=== PATIENT | female | born 1975 | race African-American/Black ===

== ENCOUNTER 2017-04-05 17:09 | Inpatient (IN) | payer BC ==
[~2017-04-05] VITALS: Ht 160 cm; Wt 81.6 kg
[2017-04-05] MEDS ORDERED: Morphine Sulfate 4mg/ml Inj IVP ONE ×2 (17:15→21:45)
[2017-04-05] MEDS ORDERED: Ketorolac 30mg Inj IV ONE (17:15)
[2017-04-05 17:40] VITALS: BP 171/109
[2017-04-05 18:01] LABS: BASOPHILS % (AUTO) 1.1 % (0.0-2.0); EOSINOPHILS % (AUTO) 3.2 % (0.0-3.0); LYMPHOCYTES % (AUTO) 21.9 % (20.0-45.0); MEAN CORPUSCULAR HEMOGLOBIN 29.8 PG (27.0-31.0); MEAN CORPUSCULAR HGB CONC 32.1 G/DL (32.0-36.0); MEAN CORPUSCULAR VOLUME 93 FL (80-99); MEAN PLATELET VOLUME 11.5 FL (6.5-10.1); MONOCYTES % (AUTO) 9.9 % (1.0-10.0); NEUTROPHILS % (AUTO) 63.9 % (45.0-75.0); PLATELET COUNT 219 K/UL (150-450); RED BLOOD COUNT 4.52 M/UL (4.20-5.40); RED CELL DISTRIBUTION WIDTH 11.6 % (11.6-14.8); WHITE BLOOD COUNT 7.5 K/UL (4.8-10.8)
[2017-04-05 18:07] LABS: INR 1.1 (0.9-1.1); PROTHROMBIN TIME 11.4 SEC (9.30-11.50)
[2017-04-05 18:08] LABS: ANION GAP 11 mmol/L (5-15); CALCIUM 9.1 MG/DL (8.5-10.1); CARBON DIOXIDE 26 MMOL/L (21-32); CHLORIDE 101 MMOL/L (98-107); CREATININE 0.9 MG/DL (0.55-1.30); GLOMERULAR FILTRATION RATE > 60 mL/min (>60); POTASSIUM 3.5 MMOL/L (3.5-5.1); SODIUM 138 MMOL/L (136-145)
[2017-04-05 18:12] LABS: ALANINE AMINOTRANSFERASE 40 U/L (12-78); ALBUMIN/GLOBULIN RATIO 0.8 (1.0-2.7); ASPARTATE AMINO TRANSFERASE 35 U/L (15-37); LIPASE 101 U/L (73-393); TOTAL PROTEIN 9.1 G/DL (6.4-8.2)
[2017-04-05 18:16] LABS: APPEARANCE,URINE SLIGHTLY CLOUDY; KETONES,URINE NEGATIVE (NEGATIVE); LEUKOCYTE ESTERASE ,URINE 1+ (NEGATIVE); NITRITE,URINE NEGATIVE (NEGATIVE); PH,URINE 6 (4.5-8.0); PROTEIN,URINE 1+ (NEGATIVE); UROBILINOGEN,URINE NORMAL MG/DL (0.0-1.0)
[2017-04-05 18:25] LABS: BACTERIA,URINE MANY /HPF; SQUAMOUS EPITHELIAL CELL,UR MODERATE /LPF (NONE/OCC)
[2017-04-05 19:00] VITALS: BP 157/93
[2017-04-05] MEDS ORDERED: cefTRIAXone 1 GM in NS 55 ML IVPB ONE (19:00)
[2017-04-05] MEDS ORDERED: LISINOPRIL10 MG ORAL (19:03)
[2017-04-05] MEDS ORDERED: SPIRONOLACTONE1 EACH ORAL (19:03)
[2017-04-05] MEDS ORDERED: SERTRALINE HCL25 MG ORAL (19:03)
--- NOTE | 2017-04-05 21:36 | Emergency Room Report ---
History of Present Illness General Chief Complaint: Abdominal Pain Source: Patient Present Illness HPI The patient presents several days with severe abdominal pain. She was sent by her doctor. She has a history of diverticulitis and believes this is what it is. Pain now 9/10 LLQ more than rest. Pain is constant, not radiating. No meds taken. No dysuria. Hysterectomy. No diarrhea, melena. Nausea and lack of appetite. Feels feverish. No URI sy, CP, cough, rashes. Stressed with work and kids. Allergies: Coded Allergies: No Known Allergies (Unverified , 04/05/17) Patient History Past Medical History: see triage record, diverticulitis Past Surgical History: hysterectomy Social History: Denies: smoking Social History Narrative single mom Now: No Reviewed Nursing Documentation: PMH: Agreed, PSxH: Agreed Nursing Documentation-PMH Hx Hypertension: Yes Review of Systems All Other Systems: negative except mentioned in HPI Physical Exam Vital Signs Date Time Temp Pulse Resp B/P (MAP) Pulse Ox O2 Delivery O2 Flow Rate FiO2 04/05/17 17:08 98.2 88 16 182/120 98 Room Air Sp02 EP Interpretation: reviewed, normal General Appearance: well appearing, no apparent distress, GCS 15 Head: normocephalic Eyes: bilateral eye normal inspection, bilateral eye PERRL ENT: moist mucus membranes Neck: supple Respiratory: lungs clear, normal breath sounds Cardiovascular #1: regular rate, rhythm Cardiovascular #2: 2+ radial (R) Gastrointestinal: no rebound, guarding - LLQ, tenderness Genitourinary: no CVA tenderness Musculoskeletal: back normal, gait/station normal, normal range of motion Neurologic: alert, oriented x3, grossly normal Psychiatric: mood/affect normal Skin: normal inspection, warm/dry Medical Decision Making Diagnostic Impression: Primary Impression: Acute diverticulitis Additional Impression: UTI (urinary tract infection) Qualified Codes: N30.00 - Acute cystitis without hematuria ER Course Patient with LLQ pain. DDx: diverticulitis, stone, colitis, strain, UTI amongst others. Although short course, exam significant and CT and labs indicated. IV hydration and analgesia also indicated. Labs with normal WBC, pyuria. Antibiotics begun. Doubt pain due to UTI. Patient with 7/[address] with diverticulitis. Not surgical abdomen. Antibiotics broadened. Admit med. Contact Dr. Germain for admission. Laboratory Tests Test 04/05/17 17:35 04/05/17 17:55 White Blood Count 7.5 K/UL (4.8-10.8) Red Blood Count 4.52 M/UL (4.20-5.40) Hemoglobin 13.5 G/DL (12.0-16.0) Hematocrit 41.9 % (37.0-47.0) Mean Corpuscular Volume 93 FL (80-99) Mean Corpuscular Hemoglobin 29.8 PG (27.0-31.0) Mean Corpuscular Hemoglobin Concent 32.1 G/DL (32.0-36.0) Red Cell Distribution Width 11.6 % (11.6-14.8) Platelet Count 219 K/UL (150-450) Mean Platelet Volume 11.5 FL (6.5-10.1) H Neutrophils (%) (Auto) 63.9 % (45.0-75.0) Lymphocytes (%) (Auto) 21.9 % (20.0-45.0) Monocytes (%) (Auto) 9.9 % (1.0-10.0) Eosinophils (%) (Auto) 3.2 % (0.0-3.0) H Basophils (%) (Auto) 1.1 % (0.0-2.0) Prothrombin Time 11.4 SEC (9.30-11.50) Prothrombin Time INR 1.1 (0.9-1.1) PTT 29 SEC (23-33) Sodium Level 138 MMOL/L (136-145) Potassium Level 3.5 MMOL/L (3.5-5.1) Chloride Level 101 MMOL/L (98-107) Carbon Dioxide Level 26 MMOL/L (21-32) Anion Gap 11 mmol/L (5-15) Blood Urea Nitrogen 15 mg/dL (7-18) Creatinine 0.9 MG/DL (0.55-1.30) Estimate Glomerular Filtration Rate > 60 mL/min (>60) Glucose Level 89 MG/DL (74-106) Calcium Level 9.1 MG/DL (8.5-10.1) Total Bilirubin 0.2 MG/DL (0.2-1.0) Aspartate Amino Transferase (AST) 35 U/L (15-37) Alanine Aminotransferase (ALT) 40 U/L (12-78) Alkaline Phosphatase 82 U/L (46-116) Total Protein 9.1 G/DL (6.4-8.2) H Albumin 3.9 G/DL (3.4-5.0) Globulin 5.2 g/dL Albumin/Globulin Ratio 0.8 (1.0-2.7) L Lipase 101 U/L (73-393) Urine Color Yellow Urine Appearance Slightly cloudy Urine pH 6 (4.5-8.0) Urine Specific [place] 1.020 (1.005-1.035) Urine Protein 1+ (NEGATIVE) H Urine Glucose (UA) Negative (NEGATIVE) Urine Ketones Negative (NEGATIVE) Urine Occult Blood 4+ (NEGATIVE) H Urine Nitrite Negative (NEGATIVE) Urine Bilirubin Negative (NEGATIVE) Urine Urobilinogen Normal MG/DL (0.0-1.0) Urine Leukocyte Esterase 1+ (NEGATIVE) H Urine RBC 10-15 /HPF (0 - 2) H Urine WBC 5-10 /HPF (0 - 2) H Urine Squamous Epithelial Cells Moderate /LPF (NONE/OCC) H Urine Bacteria Many /HPF (NONE) H Urine HCG, Qualitative Negative CT/MRI/US Diagnostic Results CT/MRI/US Diagnostic Results : Imaging Test Ordered: ct abd/pelvis Impression acute diverticulitis without abscess or perf Last Vital Signs Date Time Temp Pulse Resp B/P (MAP) Pulse Ox O2 Delivery O2 Flow Rate FiO2 04/05/17 23:41 97.6 76 19 157/93 100 Room Air Status: improved Disposition: ADMITTED INPATIENT Condition: Serious Scripts Ondansetron Odt* (ZOFRAN ODT*) 4 Mg Tab.rapdis 4 MG ORAL Q6H Y for 10 Days, #30 TAB 2 Refills Prov: Marcellus Dugan M.D. 04/06/17 Metronidazole* (FLAGYL*) 500 Mg Tablet 500 MG ORAL THREE TIMES A DAY for 9 Days, #27 TAB Prov: Marcellus Dugan M.D. 04/06/17 Referrals: NOT CHOSEN SARAH/,REFERRING (PCP) Daryl Knight M.D. Apr 05, 2017 21:36
[2017-04-05] MEDS ORDERED: Zolpidem 5mg tab ORAL PRN (22:45)
[2017-04-05] MEDS ORDERED: Morphine Sulfate 2mg/ml Inj IVP PRN (22:45)
[2017-04-05] MEDS ORDERED: Morphine Sulfate 4mg/ml Inj IVP PRN (22:45)
[2017-04-06] MEDS: D5 1/2NS w/KCl 20mEq 1,000 ML IV SCH ×3 (02:22→17:58)
[2017-04-06 04:00] VITALS: BP 142/72
[2017-04-06] MEDS: metroNIDAZOLE 500mg tab ORAL SCH ×3 (06:14→21:31)
[2017-04-06 07:05] LABS: ALANINE AMINOTRANSFERASE 38 U/L (12-78); ALBUMIN/GLOBULIN RATIO 0.8 (1.0-2.7); ANION GAP 8 mmol/L (5-15); ASPARTATE AMINO TRANSFERASE 26 U/L (15-37); BASOPHILS % (AUTO) 0.6 % (0.0-2.0); CALCIUM 8.4 MG/DL (8.5-10.1); CARBON DIOXIDE 26 MMOL/L (21-32); CHLORIDE 104 MMOL/L (98-107); CREATININE 0.8 MG/DL (0.55-1.30); EOSINOPHILS % (AUTO) 2.2 % (0.0-3.0); GLOMERULAR FILTRATION RATE > 60 mL/min (>60); LYMPHOCYTES % (AUTO) 23.3 % (20.0-45.0); MAGNESIUM 1.7 MG/DL (1.8-2.4); MEAN CORPUSCULAR HEMOGLOBIN 31.3 PG (27.0-31.0); MEAN CORPUSCULAR HGB CONC 33.5 G/DL (32.0-36.0); MEAN CORPUSCULAR VOLUME 93 FL (80-99); MEAN PLATELET VOLUME 13.1 FL (6.5-10.1); MONOCYTES % (AUTO) 11.6 % (1.0-10.0); NEUTROPHILS % (AUTO) 62.4 % (45.0-75.0); PLATELET COUNT 180 K/UL (150-450); POTASSIUM 3.8 MMOL/L (3.5-5.1); SODIUM 138 MMOL/L (136-145); TOTAL PROTEIN 7.7 G/DL (6.4-8.2); WHITE BLOOD COUNT 7.4 K/UL (4.8-10.8)
[2017-04-06 08:00] VITALS: BP 140/115
[2017-04-06] MEDS: Sertraline 50mg tab ORAL SCH (09:10)
[2017-04-06] MEDS: Lisinopril 20mg tab ORAL SCH (09:10)
[2017-04-06] MEDS: Heparin 5000 units/ml inj SUBQ SCH ×2 (09:13→21:35)
--- NOTE | 2017-04-06 09:26 | Diagnostic Imaging Report ---
Clinical Indication: Abdominal pain Technique: Patient given oral contrast. IV administration nonionic contrast. Venous phase spiral acquisition obtained through the abdomen and pelvis. Multiplanar reconstructions were generated. Total dose length product 868 mGycm. CTDIvol(s) 17 mGy. Dose reduction achieved using automated exposure control Comparison: None Findings: There is colonic diverticulosis. There is equivocal minimal stranding of the pericolonic fat at the level of the proximal sigmoid. The appendix is normal. No small bowel distention or small bowel wall thickening. There is questionably trace free pelvic cul-de-sac fluid. No free intraperitoneal air. Stomach is nondistended, otherwise unremarkable. Distal esophagus and duodenum are unremarkable. The liver, gallbladder, bile ducts, pancreas, spleen, adrenals, kidneys are all unremarkable. No retroperitoneal or mesenteric mass or adenopathy. There is a 5.3 cm cyst in the left ovary. There is suggestion of prior supracervical hysterectomy. The included lung bases demonstrate some posterior dependent atelectatic changes. Impression: Colonic diverticulosis. Equivocal slight stranding of the pericolonic fat of the proximal sigmoid, of doubtful significance but very early diverticulitis not completely excludable. Correlate with clinical findings 5.3 cm left ovarian cyst. Recommend further sonographic followup Trace free pelvic fluid, most likely physiologic. This agrees with the preliminary interpretation provided overnight by [facility] teleradiology service. The CT scanner at [facility] is accredited by the [employer] and the scans are performed using protocols designed to limit radiation exposure to as low as reasonably achievable to attain images of sufficient resolution adequate for diagnostic evaluation.
--- NOTE | 2017-04-06 11:08 | GI Initial Consult Note ---
History of Present Illness General Date patient seen: Apr 06, 2017 Time patient seen: 11:04 Reason for Hospitalization: Abdominal Pain Referring physician: SULEIMAN LOPEZ Reason for Consultation: DIVERTICULITIS Present Illness HPI The patient presents several days with severe abdominal pain. She was sent by her doctor. She has a history of diverticulitis and believes this is what it is. Pain now 9/10 LLQ more than rest. No dysuria. LNMP. No diarrhea, melena. Nausea and lack of appetite. Feels feverish. GI consulted for diverticulitis as seen on CT AP. HPI as noted above. Pt seen on floor, awake A&Ox4 NAD with no active s/sx of N/V/D. Presents with abdominal pain today 07/08. Ambulatory, NAD. Stated she had a similar episode before. Denies any unintentional weight loss or changes in dietary habits. No history of endoscopic / colonoscopy procedures. Home Meds Reported Medications Sertraline Hcl* (SERTRALINE HCL*) 25 Mg Tablet, 25 MG ORAL DAILY, TAB 04/05/17 Spironolact/Hydrochlorothiazid (SPIRONOLACTONE-HCTZ 25-25 TAB) 1 Each Tablet, 1 TAB ORAL DAILY, TAB 04/05/17 Lisinopril* (LISINOPRIL*) 10 Mg Tablet, 10 MG ORAL DAILY, TAB 04/05/17 Med list reviewed/reconciled: Yes Allergies: Coded Allergies: No Known Allergies (Unverified , 04/05/17) Patient History History Provided By: Patient, Medical Record PMH Narrative Hx Hypertension: Yes Review of Systems All Other Systems: negative except mentioned in HPI Physical Exam Vital Signs Date Time Temp Pulse Resp B/P (MAP) Pulse Ox O2 Delivery O2 Flow Rate FiO2 04/05/17 17:08 98.2 88 16 182/120 98 Room Air Sp02 EP Interpretation: reviewed, normal Labs Laboratory Tests Test 04/05/17 17:35 04/05/17 17:55 04/06/17 05:05 White Blood Count 7.5 K/UL (4.8-10.8) 7.4 K/UL (4.8-10.8) Red Blood Count 4.52 M/UL (4.20-5.40) 4.00 M/UL (4.20-5.40) L Hemoglobin 13.5 G/DL (12.0-16.0) 12.5 G/DL (12.0-16.0) Hematocrit 41.9 % (37.0-47.0) 37.3 % (37.0-47.0) Mean Corpuscular Volume 93 FL (80-99) 93 FL (80-99) Mean Corpuscular Hemoglobin 29.8 PG (27.0-31.0) 31.3 PG (27.0-31.0) H Mean Corpuscular Hemoglobin Concent 32.1 G/DL (32.0-36.0) 33.5 G/DL (32.0-36.0) Red Cell Distribution Width 11.6 % (11.6-14.8) 12.0 % (11.6-14.8) Platelet Count 219 K/UL (150-450) 180 K/UL (150-450) Mean Platelet Volume 11.5 FL (6.5-10.1) H 13.1 FL (6.5-10.1) H Neutrophils (%) (Auto) 63.9 % (45.0-75.0) 62.4 % (45.0-75.0) Lymphocytes (%) (Auto) 21.9 % (20.0-45.0) 23.3 % (20.0-45.0) Monocytes (%) (Auto) 9.9 % (1.0-10.0) 11.6 % (1.0-10.0) H Eosinophils (%) (Auto) 3.2 % (0.0-3.0) H 2.2 % (0.0-3.0) Basophils (%) (Auto) 1.1 % (0.0-2.0) 0.6 % (0.0-2.0) Prothrombin Time 11.4 SEC (9.30-11.50) Prothromb Time International Ratio 1.1 (0.9-1.1) Activated Partial Thromboplast Time 29 SEC (23-33) Sodium Level 138 MMOL/L (136-145) 138 MMOL/L (136-145) Potassium Level 3.5 MMOL/L (3.5-5.1) 3.8 MMOL/L (3.5-5.1) Chloride Level 101 MMOL/L (98-107) 104 MMOL/L (98-107) Carbon Dioxide Level 26 MMOL/L (21-32) 26 MMOL/L (21-32) Anion Gap 11 mmol/L (5-15) 8 mmol/L (5-15) Blood Urea Nitrogen 15 mg/dL (7-18) 12 mg/dL (7-18) Creatinine 0.9 MG/DL (0.55-1.30) 0.8 MG/DL (0.55-1.30) Estimat Glomerular Filtration Rate > 60 mL/min (>60) > 60 mL/min (>60) Glucose Level 89 MG/DL (74-106) 97 MG/DL (74-106) Calcium Level 9.1 MG/DL (8.5-10.1) 8.4 MG/DL (8.5-10.1) L Total Bilirubin 0.2 MG/DL (0.2-1.0) 0.3 MG/DL (0.2-1.0) Aspartate Amino Transf (AST/SGOT) 35 U/L (15-37) 26 U/L (15-37) Alanine Aminotransferase (ALT/SGPT) 40 U/L (12-78) 38 U/L (12-78) Alkaline Phosphatase 82 U/L (46-116) 71 U/L (46-116) Total Protein 9.1 G/DL (6.4-8.2) H 7.7 G/DL (6.4-8.2) Albumin 3.9 G/DL (3.4-5.0) 3.3 G/DL (3.4-5.0) L Globulin 5.2 g/dL 4.4 g/dL Albumin/Globulin Ratio 0.8 (1.0-2.7) L 0.8 (1.0-2.7) L Lipase 101 U/L (73-393) Urine Color Yellow Urine Appearance Slightly cloudy Urine pH 6 (4.5-8.0) Urine Specific [place] 1.020 (1.005-1.035) Urine Protein 1+ (NEGATIVE) H Urine Glucose (UA) Negative (NEGATIVE) Urine Ketones Negative (NEGATIVE) Urine Occult Blood 4+ (NEGATIVE) H Urine Nitrite Negative (NEGATIVE) Urine Bilirubin Negative (NEGATIVE) Urine Urobilinogen Normal MG/DL (0.0-1.0) Urine Leukocyte Esterase 1+ (NEGATIVE) H Urine RBC 10-15 /HPF (0 - 2) H Urine WBC 5-10 /HPF (0 - 2) H Urine Squamous Epithelial Cells Moderate /LPF (NONE/OCC) H Urine Bacteria Many /HPF (NONE) H Urine HCG, Qualitative Negative Magnesium Level 1.7 MG/DL (1.8-2.4) L General Appearance: well appearing, no apparent distress, alert Head: normocephalic EENT: PERRL/EOMI, normal ENT inspection Neck: supple Respiratory: normal breath sounds, no respiratory distress Cardiovascular: normal rate Gastrointestinal: normal inspection, non tender, soft, normal bowel sounds, non -distended Rectal: deferred Genitourinary: no CVA tenderness Musculoskeletal: normal inspection, back normal Neurologic: normal inspection, alert, oriented x3, responsive Psychiatric: normal inspection, judgement/insight normal, memory normal Skin: normal inspection, normal color, no rash, warm/dry, palpation normal, well hydrated Lymphatic: normal inspection, no adenopathy Current Medications Current Medications Medications (Trade) Dose Ordered Sig/Lucas Route PRN Reason Start Time Stop Time Status Last Admin Dose Admin Acetaminophen (Tylenol) 650 mg Q4H PRN ORAL Mild Pain (Pain Scale 1-3) 04/05/17 22:45 05/05/17 22:44 Ciprofloxacin 200 ml @ 200 mls/hr Q12HR IVPB 04/06/17 09:00 04/13/17 08:59 Dextrose (Dextrose 50%) STAT PRN IV Hypoglycemia 04/05/17 22:45 05/05/17 22:44 Dextrose/ Electrolytes 1,000 ml @ 100 mls/hr Q10H IV 04/05/17 23:38 05/05/17 23:37 04/06/17 09:17 Diphenhydramine HCl (Benadryl) 25 mg Q6H PRN ORAL Itching/Pruritis 04/05/17 22:45 05/05/17 22:44 Heparin Sodium (Porcine) (Heparin 5000 units/ml) 5,000 units EVERY 12 HOURS SUBQ 04/06/17 09:00 05/06/17 08:59 04/06/17 09:13 Lisinopril (Prinivil) 10 mg DAILY ORAL 04/06/17 09:00 05/06/17 08:59 04/06/17 09:10 Metronidazole (Flagyl) 500 mg Q8HR ORAL 04/06/17 06:00 04/13/17 05:59 04/06/17 06:14 Morphine Sulfate (Morphine Sulfate) 2 mg Q4H PRN IVP Moderate Pain (Pain Scale 4-6) 04/05/17 22:45 04/12/17 22:44 Morphine Sulfate (Morphine Sulfate) 4 mg Q4H PRN IVP Severe Pain (Pain Scale 7-10) 04/05/17 22:45 04/12/17 22:44 Ondansetron HCl (Zofran) 4 mg Q6H PRN IVP Nausea & Vomiting 04/05/17 22:45 05/05/17 22:44 Sertraline HCl (Zoloft) 25 mg DAILY ORAL 04/06/17 09:00 05/06/17 08:59 04/06/17 09:10 Zolpidem Tartrate (Ambien) 5 mg HSPRN PRN ORAL Insomnia 04/05/17 22:45 04/12/17 22:44 GI: Plan Problems: (1) Acute diverticulitis Plan CTAP reviewed bowel rest >> NPO, adv as tolerated IV hydration >> LR or NS IV Abx >> transition to PO Cipro + Flagyl x 10 days after dc pain mgmt fu labs Pt will require colonoscopy x 2 months after dc date. Discussed with Dr. Lucas. Thank you for this patient referral, we will follow. Sonia Higuera N.P. Apr 06, 2017 11:08
[2017-04-06 12:00] VITALS: BP 149/100
--- NOTE | 2017-04-06 12:20 | History and Physical ---
History of Present Illness General Date patient seen: Apr 06, 2017 Time patient seen: 12:20 Reason for Hospitalization: acute diverticulitis Present Illness HPI 41y/o female with pmh of HTN, depression, diverticulitis who presents with abd pain. Pt c/o worsening abd pain x 2-3 days. Describes pain in left lower abd, intermittent crampy. Also noted to be constipation x 1 weeks and then had normal BM 2-3 days. Some nausea and emesis, nb/nb. Denies f/c, chest pain, d/c, SOB, dysuria. Pt states had episode of diverticulitis a few month ago. Never had a colonoscopy. In ED, pt had CT a/p which demonstrated sigmoid diverticulosis with small amount of proximal sigmoid stranding. Pt given IVFs, abx in ED. Allergies: Coded Allergies: No Known Allergies (Unverified , 04/05/17) Medication History Scheduled Lisinopril* (Lisinopril*), 10 MG ORAL DAILY, (Reported) Metronidazole* (Flagyl*), 500 MG ORAL THREE TIMES A DAY Sertraline Hcl* (Sertraline Hcl*), 25 MG ORAL DAILY, (Reported) Spironolact/Hydrochlorothiazid (Spironolactone-Hctz 25-25 Tab), 1 TAB ORAL DAILY , (Reported) Scheduled PRN Hydrocodone Bit/Acetaminophen 10-325* ([place] 10-325*), 1 TAB ORAL Q4H PRN for For Pain, (Reported) Ondansetron Odt* (Zofran Odt*), 4 MG ORAL Q6H PRN Patient History History Provided By: Patient Healthcare decision maker Resuscitation status Full Code Advanced Directive on File Past Medical/Surgical History Past Medical/Surgical History: (1) Depression (2) HTN (hypertension) (3) Diverticulitis Family History Family History: Patient reports no known family medical history. Social History Social History: (1) HTN (hypertension) (2) Depression (3) Diverticulitis Review of Systems ROS Narrative CONSTITUTIONAL: No weight loss, fever, chills, weakness or fatigue. HEENT: Eyes: No visual loss, blurred vision, double vision or yellow sclerae. Ears, Nose, Throat: No hearing loss, sneezing, congestion, runny nose or sore throat. SKIN: No rash or itching. CARDIOVASCULAR: No chest pain, chest pressure or chest discomfort. No palpitations or edema. RESPIRATORY: No shortness of breath, cough or sputum. GASTROINTESTINAL: +Abd pain, +Nausea, vomiting NEUROLOGICAL: No headache, dizziness, syncope, paralysis, ataxia, numbness or tingling in the extremities. No change in bowel or bladder control. MUSCULOSKELETAL: No muscle, back pain, joint pain or stiffness. HEMATOLOGIC: No anemia, bleeding or bruising. LYMPHATICS: No enlarged nodes. No history of splenectomy. PSYCHIATRIC: No history of depression or anxiety. ENDOCRINOLOGIC: No reports of sweating, cold or heat intolerance. No polyuria or polydipsia. ALLERGIES: No history of asthma, hives, eczema or rhinitis. Physical Exam Physical Exam Narrative General: alert, cooperative, no distress, appears stated age Head: normocephalic, without obvious abnormality, atraumatic Eyes: conjunctivae/corneas clear. PERRL, EOM's intact Throat: lips, mucosa, and tongue normal. MMM Neck: supple, symmetrical, trachea midline, and no JVD Lungs: clear to auscultation bilaterally Heart: regular rate and rhythm, S1, S2 normal, no murmur, click, rub or gallop Abdomen: soft, +TTP of LLQ w/o rebound or guarding, non-distended, bowel sounds normal; no masses or organomegaly Extremities: extremities normal, atraumatic, no cyanosis or edema Pulses: 2+ and symmetric Skin: skin color, texture, turgor normal; no rashes or lesions Neurologic: grossly normal, no focal deficits Last 24 Hour Vital Signs Date Time Temp Pulse Resp B/P (MAP) Pulse Ox O2 Delivery O2 Flow Rate FiO2 04/06/17 12:00 98.2 72 20 149/100 99 72 04/06/17 09:10 140/115 04/06/17 08:00 98.2 84 18 140/115 100 Room Air 04/06/17 04:00 97.8 61 18 142/72 98 04/05/17 23:41 97.6 76 19 157/93 100 Room Air 04/05/17 19:00 76 19 157/93 100 Room Air 04/05/17 17:40 97.6 80 19 171/109 100 Room Air 04/05/17 17:08 98.2 88 16 182/120 98 Room Air Intake and Output 04/06/17 04/07/17 19:00 07:00 Intake Total 400 ml Balance 400 ml IV Total 400 ml Laboratory Tests Test 04/05/17 17:35 04/05/17 17:55 04/06/17 05:05 White Blood Count 7.5 K/UL (4.8-10.8) 7.4 K/UL (4.8-10.8) Red Blood Count 4.52 M/UL (4.20-5.40) 4.00 M/UL (4.20-5.40) L Hemoglobin 13.5 G/DL (12.0-16.0) 12.5 G/DL (12.0-16.0) Hematocrit 41.9 % (37.0-47.0) 37.3 % (37.0-47.0) Mean Corpuscular Volume 93 FL (80-99) 93 FL (80-99) Mean Corpuscular Hemoglobin 29.8 PG (27.0-31.0) 31.3 PG (27.0-31.0) H Mean Corpuscular Hemoglobin Concent 32.1 G/DL (32.0-36.0) 33.5 G/DL (32.0-36.0) Red Cell Distribution Width 11.6 % (11.6-14.8) 12.0 % (11.6-14.8) Platelet Count 219 K/UL (150-450) 180 K/UL (150-450) Mean Platelet Volume 11.5 FL (6.5-10.1) H 13.1 FL (6.5-10.1) H Neutrophils (%) (Auto) 63.9 % (45.0-75.0) 62.4 % (45.0-75.0) Lymphocytes (%) (Auto) 21.9 % (20.0-45.0) 23.3 % (20.0-45.0) Monocytes (%) (Auto) 9.9 % (1.0-10.0) 11.6 % (1.0-10.0) H Eosinophils (%) (Auto) 3.2 % (0.0-3.0) H 2.2 % (0.0-3.0) Basophils (%) (Auto) 1.1 % (0.0-2.0) 0.6 % (0.0-2.0) Prothrombin Time 11.4 SEC (9.30-11.50) Prothromb Time International Ratio 1.1 (0.9-1.1) Activated Partial Thromboplast Time 29 SEC (23-33) Sodium Level 138 MMOL/L (136-145) 138 MMOL/L (136-145) Potassium Level 3.5 MMOL/L (3.5-5.1) 3.8 MMOL/L (3.5-5.1) Chloride Level 101 MMOL/L (98-107) 104 MMOL/L (98-107) Carbon Dioxide Level 26 MMOL/L (21-32) 26 MMOL/L (21-32) Anion Gap 11 mmol/L (5-15) 8 mmol/L (5-15) Blood Urea Nitrogen 15 mg/dL (7-18) 12 mg/dL (7-18) Creatinine 0.9 MG/DL (0.55-1.30) 0.8 MG/DL (0.55-1.30) Estimat Glomerular Filtration Rate > 60 mL/min (>60) > 60 mL/min (>60) Glucose Level 89 MG/DL (74-106) 97 MG/DL (74-106) Calcium Level 9.1 MG/DL (8.5-10.1) 8.4 MG/DL (8.5-10.1) L Total Bilirubin 0.2 MG/DL (0.2-1.0) 0.3 MG/DL (0.2-1.0) Aspartate Amino Transf (AST/SGOT) 35 U/L (15-37) 26 U/L (15-37) Alanine Aminotransferase (ALT/SGPT) 40 U/L (12-78) 38 U/L (12-78) Alkaline Phosphatase 82 U/L (46-116) 71 U/L (46-116) Total Protein 9.1 G/DL (6.4-8.2) H 7.7 G/DL (6.4-8.2) Albumin 3.9 G/DL (3.4-5.0) 3.3 G/DL (3.4-5.0) L Globulin 5.2 g/dL 4.4 g/dL Albumin/Globulin Ratio 0.8 (1.0-2.7) L 0.8 (1.0-2.7) L Lipase 101 U/L (73-393) Urine Color Yellow Urine Appearance Slightly cloudy Urine pH 6 (4.5-8.0) Urine Specific [place] 1.020 (1.005-1.035) Urine Protein 1+ (NEGATIVE) H Urine Glucose (UA) Negative (NEGATIVE) Urine Ketones Negative (NEGATIVE) Urine Occult Blood 4+ (NEGATIVE) H Urine Nitrite Negative (NEGATIVE) Urine Bilirubin Negative (NEGATIVE) Urine Urobilinogen Normal MG/DL (0.0-1.0) Urine Leukocyte Esterase 1+ (NEGATIVE) H Urine RBC 10-15 /HPF (0 - 2) H Urine WBC 5-10 /HPF (0 - 2) H Urine Squamous Epithelial Cells Moderate /LPF (NONE/OCC) H Urine Bacteria Many /HPF (NONE) H Urine HCG, Qualitative Negative Magnesium Level 1.7 MG/DL (1.8-2.4) L Microbiology Date/Time Source Procedure Growth Status 04/05/17 17:55 Urine,Clean Catch Urine Culture - Preliminary Resulted Height (Feet): 5 Height (Inches): 3.00 Weight (Pounds): 180 Medications Current Medications Medications (Trade) Dose Ordered Sig/Lucas Route PRN Reason Start Time Stop Time Status Last Admin Dose Admin Acetaminophen (Tylenol) 650 mg Q4H PRN ORAL Mild Pain (Pain Scale 1-3) 04/05/17 22:45 05/05/17 22:44 Ciprofloxacin 200 ml @ 200 mls/hr Q12HR IVPB 04/06/17 09:00 04/13/17 08:59 04/06/17 11:28 Dextrose (Dextrose 50%) STAT PRN IV Hypoglycemia 04/05/17 22:45 05/05/17 22:44 Dextrose/ Electrolytes 1,000 ml @ 100 mls/hr Q10H IV 04/05/17 23:38 05/05/17 23:37 04/06/17 09:17 Diphenhydramine HCl (Benadryl) 25 mg Q6H PRN ORAL Itching/Pruritis 04/05/17 22:45 05/05/17 22:44 Heparin Sodium (Porcine) (Heparin 5000 units/ml) 5,000 units EVERY 12 HOURS SUBQ 04/06/17 09:00 05/06/17 08:59 04/06/17 09:13 Lisinopril (Prinivil) 10 mg DAILY ORAL 04/06/17 09:00 05/06/17 08:59 04/06/17 09:10 Metronidazole (Flagyl) 500 mg Q8HR ORAL 04/06/17 06:00 04/13/17 05:59 04/06/17 06:14 Morphine Sulfate (Morphine Sulfate) 2 mg Q4H PRN IVP Moderate Pain (Pain Scale 4-6) 04/05/17 22:45 04/12/17 22:44 Morphine Sulfate (Morphine Sulfate) 4 mg Q4H PRN IVP Severe Pain (Pain Scale 7-10) 04/05/17 22:45 04/12/17 22:44 Ondansetron HCl (Zofran) 4 mg Q6H PRN IVP Nausea & Vomiting 04/05/17 22:45 05/05/17 22:44 Sertraline HCl (Zoloft) 25 mg DAILY ORAL 04/06/17 09:00 05/06/17 08:59 04/06/17 09:10 Zolpidem Tartrate (Ambien) 5 mg HSPRN PRN ORAL Insomnia 04/05/17 22:45 04/12/17 22:44 Assessment/Plan Problem List: (1) Acute diverticulitis ICD Codes: K57.92 - Diverticulitis of intestine, part unspecified, without perforation or abscess without bleeding SNOMED: 555587132 (2) UTI (urinary tract infection) ICD Codes: N39.0 - Urinary tract infection, site not specified SNOMED: 85371961 Qualifiers: Qualified Codes: N30.00 - Acute cystitis without hematuria (3) Depression ICD Codes: F32.9 - Major depressive disorder, single episode, unspecified SNOMED: 46292397 (4) HTN (hypertension) ICD Codes: I10 - Essential (primary) hypertension SNOMED: 45180535 Status: stable Assessment/Plan Admit inpt GI and surgery consulted, appreciate rec's Start CLD and ADAT IVFs Cont cipro and flagyl Resume home meds Pain control, nausea control, supportive care FULL CODE D/w pt, RN, surgery, GI regarding mgmt and bebao Marcellus Dugan M.D. Apr 06, 2017 12:20
[2017-04-06] MEDS ORDERED: METRONIDAZOLE500 MG ORAL (12:55)
[2017-04-06] MEDS ORDERED: ZOFRAN ODT4 MG ORAL (12:55)
--- NOTE | 2017-04-06 13:11 | Consultation ---
History of Present Illness General Date patient seen: Apr 06, 2017 Chief Complaint: Abdominal Pain Referring physician: SULEIMAN LOPEZ Reason for Consultation: DIVERTICULITIS Present Illness HPI 41 year old female presented to ED with complaints of worsening abdominal pain for 2-3 days. As per patient, she was in her normal state of health until a few days ago when she began to have some vague LLQ abdominal pain. States that she had been constipated for over a week and when she finally had a normal bowel movement 2-3 days ago it was followed by intermittent cramping LLQ pain that was described as "contractions". denies n/v/f/c. no associated symptoms. no radiation. as pain worsened over the next day or two she decided to come to ED for evaluation. States she has history of diverticulitis a 2-3 years ago and has been well since. hx of hysterectomy for fibroids. In ED patient had CT which demonstrated sigmoid diverticulosis with small amount of proximal sigmoid stranding. Surgery called to evaluate. since admission states that pain has significantly improved. Allergies: Coded Allergies: No Known Allergies (Unverified , 04/05/17) Medication History Scheduled Lisinopril* (Lisinopril*), 10 MG ORAL DAILY, (Reported) Sertraline Hcl* (Sertraline Hcl*), 25 MG ORAL DAILY, (Reported) Spironolact/Hydrochlorothiazid (Spironolactone-Hctz 25-25 Tab), 1 TAB ORAL DAILY , (Reported) Patient History History Provided By: Patient Healthcare decision maker Resuscitation status Full Code Advanced Directive on File Past Medical/Surgical History Past Medical/Surgical History: (1) History of hysterectomy for benign disease (2) Diverticulitis large intestine w/o perforation or abscess w/o bleeding (3) UTI (urinary tract infection) (4) Acute diverticulitis Review of Systems Constitutional: Denies: no symptoms, see HPI, chills, sweats, fever, malaise, weakness, other Eye: Denies: no symptoms, see HPI, eye pain, blurred vision, tearing, double vision, nose pain, nose congestion, acuity changes, discharge, other ENT: Denies: no symptoms, see HPI, ear pain, ear discharge, nose pain, nose congestion, throat pain, throat swelling, mouth pain, hearing loss, nasal discharge, other Respiratory: Denies: no symptoms, see HPI, cough, orthopnea, shortness of breath, stridor, wheezing, GREGORIO, sputum, other Cardiovascular: Denies: no symptoms, see HPI, chest pain, edema, palpitations, syncope, PND, other Gastrointestinal: Reports: abdominal pain, constipation Genitourinary: Denies: no symptoms, see HPI, discharge, dysuria, frequency, hematuria, pain, retention, incontinence, urgency, vag bleed/dc, other Musculoskeletal: Denies: no symptoms, see HPI, back pain, gout, joint pain, joint swelling, muscle pain, muscle stiffness, other Skin: Denies: no symptoms, see HPI, rash, change in color, change in hair/nails , dryness, lesions, other Psychiatric: Denies: no symptoms, see HPI, prior hx, anxiety, depressed feelings, emotional problems, SI, HI, hallucinations, other Neurological: Denies: no symptoms, see HPI, headache, numbness, paresthesia, seizure, tingling, tremors, focal weakness, syncope, dizziness, other Endocrine: Denies: no symptoms, see HPI, excessive sweating, flushing, intolerance to temperature, increased thirst, increased urine, unexplained weight loss, other Hematologic/Lymphatic: Denies: no symptoms, see HPI, anemia, blood clots, easy bleeding, easy bruising, swollen glands, diathesis, other All Other Systems: negative except mentioned in HPI Physical Exam General Appearance: WD/WN, no apparent distress, alert Lines, tubes and drains: peripheral HEENT: mucous membranes moist, PERRL Neck: normal inspection Respiratory/Chest: normal breath sounds, no respiratory distress, no accessory muscle use Cardiovascular/Chest: normal peripheral pulses Abdomen: normal bowel sounds, non tender, soft, no organomegaly, no mass, other - mild LLQ discomfort on deep palpation Extremities: non-tender, no calf tenderness Skin Exam: normal pigmentation Neurologic: alert, oriented x 3, responsive Last 24 Hour Vital Signs Date Time Temp Pulse Resp B/P (MAP) Pulse Ox O2 Delivery O2 Flow Rate FiO2 04/06/17 12:00 98.2 72 20 149/100 99 72 04/06/17 09:10 140/115 04/06/17 08:00 98.2 84 18 140/115 100 Room Air 04/06/17 04:00 97.8 61 18 142/72 98 04/05/17 23:41 97.6 76 19 157/93 100 Room Air 04/05/17 19:00 76 19 157/93 100 Room Air 04/05/17 17:40 97.6 80 19 171/109 100 Room Air 04/05/17 17:08 98.2 88 16 182/120 98 Room Air Intake and Output 04/06/17 04/07/17 19:00 07:00 Intake Total 400 ml Balance 400 ml IV Total 400 ml Laboratory Tests Test 04/05/17 17:35 04/05/17 17:55 04/06/17 05:05 White Blood Count 7.5 K/UL (4.8-10.8) 7.4 K/UL (4.8-10.8) Red Blood Count 4.52 M/UL (4.20-5.40) 4.00 M/UL (4.20-5.40) L Hemoglobin 13.5 G/DL (12.0-16.0) 12.5 G/DL (12.0-16.0) Hematocrit 41.9 % (37.0-47.0) 37.3 % (37.0-47.0) Mean Corpuscular Volume 93 FL (80-99) 93 FL (80-99) Mean Corpuscular Hemoglobin 29.8 PG (27.0-31.0) 31.3 PG (27.0-31.0) H Mean Corpuscular Hemoglobin Concent 32.1 G/DL (32.0-36.0) 33.5 G/DL (32.0-36.0) Red Cell Distribution Width 11.6 % (11.6-14.8) 12.0 % (11.6-14.8) Platelet Count 219 K/UL (150-450) 180 K/UL (150-450) Mean Platelet Volume 11.5 FL (6.5-10.1) H 13.1 FL (6.5-10.1) H Neutrophils (%) (Auto) 63.9 % (45.0-75.0) 62.4 % (45.0-75.0) Lymphocytes (%) (Auto) 21.9 % (20.0-45.0) 23.3 % (20.0-45.0) Monocytes (%) (Auto) 9.9 % (1.0-10.0) 11.6 % (1.0-10.0) H Eosinophils (%) (Auto) 3.2 % (0.0-3.0) H 2.2 % (0.0-3.0) Basophils (%) (Auto) 1.1 % (0.0-2.0) 0.6 % (0.0-2.0) Prothrombin Time 11.4 SEC (9.30-11.50) Prothromb Time International Ratio 1.1 (0.9-1.1) Activated Partial Thromboplast Time 29 SEC (23-33) Sodium Level 138 MMOL/L (136-145) 138 MMOL/L (136-145) Potassium Level 3.5 MMOL/L (3.5-5.1) 3.8 MMOL/L (3.5-5.1) Chloride Level 101 MMOL/L (98-107) 104 MMOL/L (98-107) Carbon Dioxide Level 26 MMOL/L (21-32) 26 MMOL/L (21-32) Anion Gap 11 mmol/L (5-15) 8 mmol/L (5-15) Blood Urea Nitrogen 15 mg/dL (7-18) 12 mg/dL (7-18) Creatinine 0.9 MG/DL (0.55-1.30) 0.8 MG/DL (0.55-1.30) Estimat Glomerular Filtration Rate > 60 mL/min (>60) > 60 mL/min (>60) Glucose Level 89 MG/DL (74-106) 97 MG/DL (74-106) Calcium Level 9.1 MG/DL (8.5-10.1) 8.4 MG/DL (8.5-10.1) L Total Bilirubin 0.2 MG/DL (0.2-1.0) 0.3 MG/DL (0.2-1.0) Aspartate Amino Transf (AST/SGOT) 35 U/L (15-37) 26 U/L (15-37) Alanine Aminotransferase (ALT/SGPT) 40 U/L (12-78) 38 U/L (12-78) Alkaline Phosphatase 82 U/L (46-116) 71 U/L (46-116) Total Protein 9.1 G/DL (6.4-8.2) H 7.7 G/DL (6.4-8.2) Albumin 3.9 G/DL (3.4-5.0) 3.3 G/DL (3.4-5.0) L Globulin 5.2 g/dL 4.4 g/dL Albumin/Globulin Ratio 0.8 (1.0-2.7) L 0.8 (1.0-2.7) L Lipase 101 U/L (73-393) Urine Color Yellow Urine Appearance Slightly cloudy Urine pH 6 (4.5-8.0) Urine Specific [place] 1.020 (1.005-1.035) Urine Protein 1+ (NEGATIVE) H Urine Glucose (UA) Negative (NEGATIVE) Urine Ketones Negative (NEGATIVE) Urine Occult Blood 4+ (NEGATIVE) H Urine Nitrite Negative (NEGATIVE) Urine Bilirubin Negative (NEGATIVE) Urine Urobilinogen Normal MG/DL (0.0-1.0) Urine Leukocyte Esterase 1+ (NEGATIVE) H Urine RBC 10-15 /HPF (0 - 2) H Urine WBC 5-10 /HPF (0 - 2) H Urine Squamous Epithelial Cells Moderate /LPF (NONE/OCC) H Urine Bacteria Many /HPF (NONE) H Urine HCG, Qualitative Negative Magnesium Level 1.7 MG/DL (1.8-2.4) L Microbiology Date/Time Source Procedure Growth Status 04/05/17 17:55 Urine,Clean Catch Urine Culture - Preliminary Resulted Height (Feet): 5 Height (Inches): 3.00 Weight (Pounds): 180 Medications Current Medications Medications (Trade) Dose Ordered Sig/Lucas Route PRN Reason Start Time Stop Time Status Last Admin Dose Admin Acetaminophen (Tylenol) 650 mg Q4H PRN ORAL Mild Pain (Pain Scale 1-3) 04/05/17 22:45 05/05/17 22:44 Ciprofloxacin 200 ml @ 200 mls/hr Q12HR IVPB 04/06/17 09:00 04/13/17 08:59 04/06/17 11:28 Dextrose (Dextrose 50%) STAT PRN IV Hypoglycemia 04/05/17 22:45 05/05/17 22:44 Dextrose/ Electrolytes 1,000 ml @ 100 mls/hr Q10H IV 04/05/17 23:38 05/05/17 23:37 04/06/17 09:17 Diphenhydramine HCl (Benadryl) 25 mg Q6H PRN ORAL Itching/Pruritis 04/05/17 22:45 05/05/17 22:44 Heparin Sodium (Porcine) (Heparin 5000 units/ml) 5,000 units EVERY 12 HOURS SUBQ 04/06/17 09:00 05/06/17 08:59 04/06/17 09:13 Lisinopril (Prinivil) 10 mg DAILY ORAL 04/06/17 09:00 05/06/17 08:59 04/06/17 09:10 Metronidazole (Flagyl) 500 mg Q8HR ORAL 04/06/17 06:00 04/13/17 05:59 04/06/17 06:14 Morphine Sulfate (Morphine Sulfate) 2 mg Q4H PRN IVP Moderate Pain (Pain Scale 4-6) 04/05/17 22:45 04/12/17 22:44 Morphine Sulfate (Morphine Sulfate) 4 mg Q4H PRN IVP Severe Pain (Pain Scale 7-10) 04/05/17 22:45 04/12/17 22:44 Ondansetron HCl (Zofran) 4 mg Q6H PRN IVP Nausea & Vomiting 04/05/17 22:45 05/05/17 22:44 Sertraline HCl (Zoloft) 25 mg DAILY ORAL 04/06/17 09:00 05/06/17 08:59 04/06/17 09:10 Zolpidem Tartrate (Ambien) 5 mg HSPRN PRN ORAL Insomnia 04/05/17 22:45 04/12/17 22:44 Assessment/Plan Problem List: (1) Diverticulitis large intestine w/o perforation or abscess w/o bleeding ICD Codes: K57.32 - Diverticulitis of large intestine without perforation or abscess without bleeding SNOMED: 7354426 (2) Acute diverticulitis ICD Codes: K57.92 - Diverticulitis of intestine, part unspecified, without perforation or abscess without bleeding SNOMED: 132746591 Status: stable Assessment/Plan 41F with acute uncomplicated diverticulitis. Afebrile, HD stable, labs normal, CT as above. States that pain was initially worsening prior to admission but since has resolved. exam currently benign. -clear liquid diet. advance as tolerated -okay to d/c from surgical standpoint -can follow up with me 2-4 weeks. currently patient has no desire for elective sigmoid resection given multiple prior uncomplicated episodes. discussed care and plans with patient. she will follow up when ready. Devon Quezada Apr 06, 2017 13:11
[2017-04-06] MEDS ORDERED: NORCO 10-325 T1 EACH ORAL (15:06)
[2017-04-06] MEDS ORDERED: Tubing IV Secondary IV ONE (16:05)
[2017-04-06 16:27] VITALS: BP 140/85
[2017-04-06 19:55] VITALS: BP 156/70
[2017-04-07 00:32] VITALS: BP 143/96
[2017-04-07 00:46] VITALS: BP 143/96
[2017-04-07] MEDS: D5 1/2NS w/KCl 20mEq 1,000 ML IV SCH (02:03)
[2017-04-07 04:57] VITALS: BP 144/88
[2017-04-07] MEDS: metroNIDAZOLE 500mg tab ORAL SCH ×2 (06:05→14:31)
[2017-04-07 07:22] LABS: BASOPHILS % (AUTO) 0.5 % (0.0-2.0); EOSINOPHILS % (AUTO) 1.3 % (0.0-3.0); LYMPHOCYTES % (AUTO) 25.9 % (20.0-45.0); MEAN CORPUSCULAR HEMOGLOBIN 30.8 PG (27.0-31.0); MEAN CORPUSCULAR HGB CONC 32.9 G/DL (32.0-36.0); MEAN CORPUSCULAR VOLUME 94 FL (80-99); MEAN PLATELET VOLUME 10.8 FL (6.5-10.1); MONOCYTES % (AUTO) 9.9 % (1.0-10.0); NEUTROPHILS % (AUTO) 62.4 % (45.0-75.0); PLATELET COUNT 198 K/UL (150-450); RED BLOOD COUNT 4.08 M/UL (4.20-5.40); RED CELL DISTRIBUTION WIDTH 11.8 % (11.6-14.8); WHITE BLOOD COUNT 6.3 K/UL (4.8-10.8)
[2017-04-07 07:30] LABS: ANION GAP 7 mmol/L (5-15); CALCIUM 8.8 MG/DL (8.5-10.1); CARBON DIOXIDE 27 MMOL/L (21-32); CHLORIDE 105 MMOL/L (98-107); CREATININE 0.9 MG/DL (0.55-1.30); GLOMERULAR FILTRATION RATE > 60 mL/min (>60); POTASSIUM 3.6 MMOL/L (3.5-5.1); SODIUM 139 MMOL/L (136-145)
--- NOTE | 2017-04-07 09:18 | General Surgery Progress Note ---
General Surgery-Progress Note Subjective Symptoms: improved, tolerating diet, passing flatus Additional Comments had episode of emesis yesterday. since no nausea or emesis. feeling better today. states she is hungry. no f/c. pain improved. no tenderness. Objective Last 24 Hour Vital Signs Date Time Temp Pulse Resp B/P (MAP) Pulse Ox O2 Delivery O2 Flow Rate FiO2 04/07/17 04:57 98.3 71 15 144/88 97 Room Air 04/07/17 00:46 98.3 67 15 143/96 97 Room Air 04/07/17 00:32 98.3 67 15 143/96 97 Room Air 04/06/17 19:55 98.3 72 15 156/70 98 Room Air 04/06/17 16:27 98.3 68 15 140/85 100 04/06/17 12:00 98.2 72 20 149/100 99 72 Drains: none Cardiovascular: RSR Respiratory: clear Abdomen: soft, non-tender, present bowel sounds Extremities: no tenderness Laboratory Tests Test 04/07/17 05:35 White Blood Count 6.3 K/UL (4.8-10.8) Red Blood Count 4.08 M/UL (4.20-5.40) L Hemoglobin 12.6 G/DL (12.0-16.0) Hematocrit 38.2 % (37.0-47.0) Mean Corpuscular Volume 94 FL (80-99) Mean Corpuscular Hemoglobin 30.8 PG (27.0-31.0) Mean Corpuscular Hemoglobin Concent 32.9 G/DL (32.0-36.0) Red Cell Distribution Width 11.8 % (11.6-14.8) Platelet Count 198 K/UL (150-450) Mean Platelet Volume 10.8 FL (6.5-10.1) H Neutrophils (%) (Auto) 62.4 % (45.0-75.0) Lymphocytes (%) (Auto) 25.9 % (20.0-45.0) Monocytes (%) (Auto) 9.9 % (1.0-10.0) Eosinophils (%) (Auto) 1.3 % (0.0-3.0) Basophils (%) (Auto) 0.5 % (0.0-2.0) Sodium Level 139 MMOL/L (136-145) Potassium Level 3.6 MMOL/L (3.5-5.1) Chloride Level 105 MMOL/L (98-107) Carbon Dioxide Level 27 MMOL/L (21-32) Anion Gap 7 mmol/L (5-15) Blood Urea Nitrogen 9 mg/dL (7-18) Creatinine 0.9 MG/DL (0.55-1.30) Estimat Glomerular Filtration Rate > 60 mL/min (>60) Glucose Level 98 MG/DL (74-106) Calcium Level 8.8 MG/DL (8.5-10.1) Magnesium Level 2.0 MG/DL (1.8-2.4) Plan Problems: (1) Diverticulitis large intestine w/o perforation or abscess w/o bleeding Assessment & Plan: 41F acute uncomplicated diverticulitis. afebrile, HD stable , labs okay, pain resolved, doing well. -changed to oral abx -diet as tolerated -okay to d/c from surgical standpoint on oral abx -discussed diet with patient -office information given to patient for follow up thank you for this consultation. (2) Acute diverticulitis Devon Quezada Apr 07, 2017 09:18
[2017-04-07] MEDS ORDERED: Ciprofloxacin 500mg tab ORAL SCH (09:30)
[2017-04-07] MEDS ORDERED: metroNIDAZOLE 500mg tab ORAL SCH (09:30)
[2017-04-07] MEDS: Heparin 5000 units/ml inj SUBQ SCH (09:53)
[2017-04-07] MEDS: Sertraline 50mg tab ORAL SCH (09:54)
[2017-04-07 10:00] VITALS: BP 148/96
[2017-04-07] MEDS: Lisinopril 20mg tab ORAL SCH (10:01)
--- NOTE | 2017-04-07 11:14 | GI Progress Note ---
Assessment/Plan Problems: (1) Diverticulitis ICD Codes: K57.92 - Diverticulitis of intestine, part unspecified, without perforation or abscess without bleeding SNOMED: 592234849 (2) Acute diverticulitis ICD Codes: K57.92 - Diverticulitis of intestine, part unspecified, without perforation or abscess without bleeding SNOMED: 577583192 (3) Diverticulitis large intestine w/o perforation or abscess w/o bleeding ICD Codes: K57.32 - Diverticulitis of large intestine without perforation or abscess without bleeding SNOMED: 7176816 Status: stable Status Narrative Discussed with Dr. Lucas. Assessment/Plan okay for DC per GI standpoint on low residual diet, tolerating transition to PO Cipro + Flagyl x 10 days after dc pain mgmt fu labs Pt will require colonoscopy x 2 months after dc date, will contact patient for f /u. Subjective Subjective minimal abdominal pain ready to go home Objective Last 24 Hour Vital Signs Date Time Temp Pulse Resp B/P (MAP) Pulse Ox O2 Delivery O2 Flow Rate FiO2 04/07/17 10:01 148/96 04/07/17 04:57 98.3 71 15 144/88 97 Room Air 04/07/17 00:46 98.3 67 15 143/96 97 Room Air 04/07/17 00:32 98.3 67 15 143/96 97 Room Air 04/06/17 19:55 98.3 72 15 156/70 98 Room Air 04/06/17 16:27 98.3 68 15 140/85 100 04/06/17 12:00 98.2 72 20 149/100 99 72 Laboratory Tests Test 04/07/17 05:35 White Blood Count 6.3 K/UL (4.8-10.8) Red Blood Count 4.08 M/UL (4.20-5.40) L Hemoglobin 12.6 G/DL (12.0-16.0) Hematocrit 38.2 % (37.0-47.0) Mean Corpuscular Volume 94 FL (80-99) Mean Corpuscular Hemoglobin 30.8 PG (27.0-31.0) Mean Corpuscular Hemoglobin Concent 32.9 G/DL (32.0-36.0) Red Cell Distribution Width 11.8 % (11.6-14.8) Platelet Count 198 K/UL (150-450) Mean Platelet Volume 10.8 FL (6.5-10.1) H Neutrophils (%) (Auto) 62.4 % (45.0-75.0) Lymphocytes (%) (Auto) 25.9 % (20.0-45.0) Monocytes (%) (Auto) 9.9 % (1.0-10.0) Eosinophils (%) (Auto) 1.3 % (0.0-3.0) Basophils (%) (Auto) 0.5 % (0.0-2.0) Sodium Level 139 MMOL/L (136-145) Potassium Level 3.6 MMOL/L (3.5-5.1) Chloride Level 105 MMOL/L (98-107) Carbon Dioxide Level 27 MMOL/L (21-32) Anion Gap 7 mmol/L (5-15) Blood Urea Nitrogen 9 mg/dL (7-18) Creatinine 0.9 MG/DL (0.55-1.30) Estimat Glomerular Filtration Rate > 60 mL/min (>60) Glucose Level 98 MG/DL (74-106) Calcium Level 8.8 MG/DL (8.5-10.1) Magnesium Level 2.0 MG/DL (1.8-2.4) Height (Feet): 5 Height (Inches): 3.00 Weight (Pounds): 180 General Appearance: WD/WN, no apparent distress, alert Cardiovascular: normal rate Respiratory/Chest: normal breath sounds, no respiratory distress Abdominal Exam: normal bowel sounds, non tender, soft Extremities: normal range of motion, non-tender Sonia Higuera N.P. Apr 07, 2017 11:14
[2017-04-07 12:31] VITALS: BP 145/101
--- NOTE | 2017-04-07 14:21 | Discharge Summary ---
Discharge Summary Hospital Course Date of Admission Apr 05, 2017 at 22:23 Date of Discharge 04/07/17 Admitting Diagnosis diverticulitis Reason for Hospitalization: acute diverticulitis HPI 41y/o female with pmh of HTN, depression, diverticulitis who presents with abd pain. Pt c/o worsening abd pain x 2-3 days. Describes pain in left lower abd, intermittent crampy. Also noted to be constipation x 1 weeks and then had normal BM 2-3 days. Some nausea and emesis, nb/nb. Denies f/c, chest pain, d/c, SOB, dysuria. Pt states had episode of diverticulitis a few month ago. Never had a colonoscopy. In ED, pt had CT a/p which demonstrated sigmoid diverticulosis with small amount of proximal sigmoid stranding. Pt given IVFs, abx in ED. Consultations General surgery, Gastroenterology Hospital Course Pt was admitted and seen by GI and surgery. Pt was continued NPO, on IVFs and IV antibiotics. Once improving, pt's diet was slowly advanced as tolerated. Once pain controlled and tolerating PO, pt was discharged home. Discharge Medications New Medications: Ciprofloxacin Hcl* (Ciprofloxacin Hcl*) 500 Mg Tablet 500 MG ORAL Q12H for 9 Days, #18 TAB 0 Refills Metronidazole* (Flagyl*) 500 Mg Tablet 500 MG ORAL THREE TIMES A DAY for 9 Days, #27 TAB Ondansetron Odt* (Zofran Odt*) 4 Mg Tab.rapdis 4 MG ORAL Q6H PRN for 10 Days, #30 TAB 2 Refills Continued Medications: Hydrocodone Bit/Acetaminophen 10-325* ([place] 10-325*) 1 Each Tablet 1 TAB ORAL Q4H PRN for For Pain, TAB 0 Refills PRN PAIN Lisinopril* (Lisinopril*) 10 Mg Tablet 10 MG ORAL DAILY, TAB Sertraline Hcl* (Sertraline Hcl*) 25 Mg Tablet 25 MG ORAL DAILY, TAB Spironolact/Hydrochlorothiazid (Spironolactone-Hctz 25-25 Tab) 1 Each Tablet 1 TAB ORAL DAILY, TAB Discharge Condition Upon Discharge: stable Discharge Disposition Patient was discharged to Home (01) Discharge Diagnoses: (1) Diverticulitis (2) Depression (3) HTN (hypertension) Marcellus Dugan M.D. Apr 07, 2017 14:21
[2017-04-11] MEDS ORDERED: CIPROFLOXACIN500 M2 ORAL (22:13)
== END 2017-04-07 16:35 | disposition home or self-care (01) | DRG 392 ==
LOC: EDBD 17:09 → EMR 18:35 → 4E 22:23 → EDBEDREQ 22:27
DX: K57.32 Diverticulitis of large intestine without perforation or abscess without bleeding (principal); I10 Essential (primary) hypertension; F32.9 Major depressive disorder, single episode, unspecified
CPT/HCPCS: 36415; 74177; 80048; 80053; 81003; 81025; 83690; 83735; 85025; 85610; 85730; 87086; 99285; J2405